=== PATIENT | female | born 1980 | race Caucasian/White ===

== ENCOUNTER 2019-08-22 11:13 | Day surgery (SDC) | payer BC, MEDICAID, OTHER ==
[~2019-08-22 11:13] MED LIST: Acetaminophen 500 MG Tab PO ONE; Albuterol/Ipratropium 3.0-0.5 MG/3 ML Neb Soln NEB ONE; Bupivacaine 0.5% 50 ML MDV ONE; Dextrose 5%-Lactated Ringers 1,000 ML IV SCH; Lidocaine 1% with EPINEPHrine 1:100,000 50 ML MDV ONE
[2019-08-22] MEDS ORDERED: ceFAZolin 2 GM in Premix Bag 1 BAG IV ONE (11:30)
[2019-08-22] MEDS ORDERED: Midazolam 1 MG/ML 2 ML SDV ONE (13:00)
[2019-08-22] MEDS ORDERED: Propofol 200 MG/20 ML SDV ONE (13:00)
[2019-08-22] MEDS ORDERED: fentaNYL 100 MCG/2 ML SDV ONE (13:00)
[2019-08-22] MEDS ORDERED: HYDROmorphone 2 MG Tab PO ONE (14:20)
[2019-08-22 15:08] VITALS: BP 148/52; PULSE 88
--- NOTE | 2019-08-25 13:02 | OR ---
DATE OF PROCEDURE: 08/22/2019 SURGEON: Homar Barbosa MD PREOPERATIVE DIAGNOSIS: Complex cyst in the left breast with fine-needle aspiration showing cytologic atypia. POSTOPERATIVE DIAGNOSIS: Complex cyst in the left breast with fine-needle aspiration showing cytologic atypia. PROCEDURE: Left partial mastectomy (). ANESTHESIA: Local plus IV sedation. INDICATION FOR PROCEDURE: This is a 38-year-old female presenting with some painful cyst in the upper inner quadrant of the left breast. The patient then underwent fine-needle aspiration of those cysts and the pathology report came back showing atypical cells on cytology. The situation was discussed with the pathologist and the feeling was there was a small risk of this representing an early malignancy. Given this, the complex cyst in that area would be best treated with excision. The potential risks of procedure including bleeding, infection, cosmetic deformity, need for additional treatment if malignancy is identified were all reviewed, and the patient wishes to proceed. DETAILS OF PROCEDURE: The patient was taken to the operating room and placed in a supine position. The left breast and surrounding areas were prepped and draped. The complex cyst was in the medial aspect in the upper quadrant of the left breast. An areolar incision was made after the area had been prepped and draped and anesthetized with 1% lidocaine and the tissue which essentially occupied most of the upper inner quadrant of the breast was then excised. This contained multiple obvious cysts within it and the specimen was delivered from the field. Hemostasis was obtained with electrocautery, and at that point, the deeper tissues were approximated with some 3-0 Vicryl stitch, we were able to pull up tissue together in the deeper planes such that there was not much in the way of cosmetic deformity apart from the incision. Incision was then closed with 5-0 Vicryl skin stitch, dressing was applied. The patient was taken to the recovery room in satisfactory condition. Homar Barbosa MD /[id number]
== END 2019-08-22 15:12 | disposition home or self-care (01) ==
LOC: JP.SDS 11:13
PROVIDERS: ATTEND Surgery
DX: N60.02 Solitary cyst of left breast (principal); J45.909 Unspecified asthma, uncomplicated; F17.210 Nicotine dependence, cigarettes, uncomplicated
CPT/HCPCS: 19301; 88305; 88341; 88342; 94640; A9270; J0690; J2250; J2704; J3010; J3490; J7121; J7620-GY